=== PATIENT | female | born 1980 | race Caucasian/White ===

== ENCOUNTER 2020-01-05 14:59 | Inpatient (IN) ==
[2020-01-05 15:52] LABS: Urine Appearance Cloudy; Urine Bilirubin Negative (Negative); Urine Blood 1+ (Negative); Urine Color Yellow; Urine Glucose Negative (Negative); Urine Ketones Negative (Negative); Urine Nitrite Negative (Negative); Urine Protein Negative (Negative); Urine Specific Gravity 1.016 (1.010-1.030); Urine Urobilinogen Positive (Negative)
[2020-01-05 15:53] LABS: Urine Bacteria Absent (Absent); Urine Red Blood Cell 2+(6-10/hpf) (Absent); Urine Squamous Epithelial Cell Present (Absent); Urine White Blood Cell 1+(6-10/hpf) (Absent)
[2020-01-05 16:27] LABS: Hematocrit 40 % (35-47); Mean Corpuscular HGB Conc 35 g/dL (31-36); Mean Corpuscular Hemoglobin 34 pg (27-31); Mean Corpuscular Volume 98 fL (80-97); Mean Platelet Volume 7.5 fL (7.4-10.4); Platelet Count 264 10^3/uL (150-450); Red Blood Count 4.12 10^6 /uL (3.70-4.87); Red Cell Distribution Width 13 % (10-15); White Blood Count 6.2 10^3/uL (3.5-10.8)
[2020-01-05 16:46] LABS: ABS Eosinophils 0.1 10^3/ul (0-0.6); ABS Lymphocytes 1.5 10^3/ul (1.0-4.8); ABS Monocytes 0.5 10^3/ul (0-0.8); Eosinophil % 0.9 %; Lymphocyte % 24.5 %; Nucleated Red Blood Cells % 0.1
[2020-01-05 16:48] LABS: Urine Benzodiazepine Screen None Detected (None Detect); Urine Opiates Screen None Detected (None Detect)
[2020-01-05 17:19] LABS: ALT 11 U/L (7-52); AST 14 U/L (13-39); Albumin 4.6 g/dL (3.2-5.2); Albumin/Globulin Ratio 1.9 (1-3); Alkaline Phosphatase 39 U/L (34-104); Anion Gap 8 mmol/L (2-11); BUN/Creatinine Ratio 17.1 (8-20); Blood Urea Nitrogen 13 mg/dL (6-24); CO2 Carbon Dioxide 26 mmol/L (22-32); Calcium 9.5 mg/dL (8.6-10.3); Chloride 103 mmol/L (101-111); EGFR African American 103.6 (>60); EGFR Non-African American 85.6 (>60); Globulin 2.4 g/dL (2-4); Glucose 123 mg/dL (70-100); Potassium 4.2 mmol/L (3.5-5.0); Sodium 137 mmol/L (135-145)
[2020-01-05 17:25] LABS: Acetaminophen < 15 mcg/mL; Alcohol, S < 10 mg/dL (<10); Salicylate < 2.50 mg/dL (<30)
[2020-01-05 17:27] LABS: TSH (Thyroid Stimulating Horm) 1.51 mcIU/mL (0.34-5.60)
[2020-01-05] MEDS ORDERED: Al Hydrox/Mg Hydrox/Simet LIQ 30 ML UDC PO PRN (22:27)
[2020-01-06] MEDS: Vitamin THERAPEUTIC TAB PO SCH (09:04)
[2020-01-07 08:04] LABS: HDL Cholesterol 58.9 mg/dL
[2020-01-07] MEDS: Vitamin THERAPEUTIC TAB PO SCH (08:37)
[2020-01-08] MEDS: Vitamin THERAPEUTIC TAB PO SCH (09:07)
[2020-01-09] MEDS: Vitamin THERAPEUTIC TAB PO SCH (09:01)
[2020-01-10] MEDS: Vitamin THERAPEUTIC TAB PO SCH (08:47)
[2020-01-10] MEDS: LORazepam 0.5 mg TAB (*) PO PRN (15:34)
[2020-01-11] MEDS: Vitamin THERAPEUTIC TAB PO SCH (08:55)
[2020-01-12] MEDS: Vitamin THERAPEUTIC TAB PO SCH (08:35)
[2020-01-12] MEDS: LORazepam 0.5 mg TAB (*) PO PRN (11:34)
[2020-01-13] MEDS: Vitamin THERAPEUTIC TAB PO SCH (08:32)
[2020-01-13 08:41] VITALS: BP 112/71
== END 2020-01-13 12:37 | disposition home or self-care (01) | DRG 880 ==
LOC: ED 14:59 → BSU 22:04
PROVIDERS: ADMIT Psychiatry & Neurology Psychiatry; ATTEND Psychiatry & Neurology Psychiatry